=== PATIENT | female | born 1990 | race Two or more races ===

== ENCOUNTER 2021-04-28 01:29 | Outpatient (CLI) | payer OTHER ==
[2021-04-29] MEDS ORDERED: DUI500 PO (07:15)
== END 2021-04-29 10:02 | disposition home or self-care (01) ==
LOC: OBS/DEL 01:29
PROVIDERS: ATTEND Obstetrics & Gynecology
DX: O46.8X3 Other antepartum hemorrhage, third trimester (principal); Z3A.35 35 weeks gestation of pregnancy

== ENCOUNTER 2021-05-09 14:01 | Outpatient (CLI) | payer OTHER ==
[~2021-05-09 14:01] MED LIST: DUI500 PO
== END 2021-05-10 10:38 | disposition home or self-care (01) ==
LOC: OBS/DEL 14:01
PROVIDERS: ATTEND Obstetrics & Gynecology
DX: O26.843 Uterine size-date discrepancy, third trimester (principal); O36.8130 Decreased fetal movements, third trimester, not applicable or unspecified; O23.43 Unspecified infection of urinary tract in pregnancy, third trimester; O98.513 Other viral diseases complicating pregnancy, third trimester; U07.1 COVID-19; Z3A.37 37 weeks gestation of pregnancy

== ENCOUNTER 2021-05-17 07:01 | Outpatient (CLI) | payer OTHER ==
[2021-05-18] MEDS ORDERED: DUI500 PO (07:35)
[2021-05-18] MEDS ORDERED: PROBIOTIC1 EACH PO (07:35)
[2021-05-18] MEDS ORDERED: PRENATAL CAPLE1 EAC1 PO (07:35)
[2021-05-18] MEDS ORDERED: ORTHO DF 3,7751 EACH PO (07:35)
[2021-05-18] MEDS ORDERED: FOLIC ACID1 MG (08:03)
[2021-05-18] MEDS ORDERED: DOXYLAMINE-PYR1 EACH (08:03)
== END 2021-05-17 08:29 | disposition home or self-care (01) ==
LOC: NST 07:01
PROVIDERS: ATTEND Obstetrics & Gynecology
DX: Z34.03 Encounter for supervision of normal first pregnancy, third trimester (principal)

== ENCOUNTER 2021-05-18 07:11 | Inpatient (IN) | payer OTHER ==
[~2021-05-18] VITALS: Ht 165.1 cm; Wt 73.0 kg
[2021-05-18] MEDS ORDERED: ORTHO DF 3,7751 EACH PO (07:35)
[2021-05-18] MEDS ORDERED: PROBIOTIC1 EACH PO (07:35)
[2021-05-18] MEDS ORDERED: DUI500 PO (07:35)
[2021-05-18] MEDS ORDERED: PRENATAL CAPLE1 EAC1 PO (07:35)
[2021-05-18] MEDS ORDERED: DOXYLAMINE-PYR1 EACH (08:03)
[2021-05-18] MEDS ORDERED: FOLIC ACID1 MG (08:03)
[2021-05-21] MEDS ORDERED: PRENATE ADVANCE PO ×2 (13:02)
[2021-05-21] MEDS ORDERED: DOCUSATE SODIU100 MG PO ×2 (13:02)
[2021-05-21] MEDS ORDERED: IBUPROFEN800 MG PO ×2 (13:02)
[2021-05-21] MEDS ORDERED: SIMETHICONE125 M1 PO ×2 (13:02)
== END 2021-05-21 13:23 | disposition home or self-care (01) | DRG 786 ==
LOC: LDR 07:11 → OB/GYN 07:11
PROVIDERS: ADMIT Obstetrics & Gynecology; ATTEND Obstetrics & Gynecology
PROC: 3E0P7VZ Introduction of Hormone into Female Reproductive, Via Natural or Artificial Opening (ICD-10-PCS; 2021-05-18)
PROC: 4A1HXFZ Monitoring of Products of Conception, Cardiac Rhythm, External Approach (ICD-10-PCS; 2021-05-18)
PROC: 10D00Z1 Extraction of Products of Conception, Low, Open Approach (ICD-10-PCS; principal; 2021-05-18 15:00)
DX: O62.1 Secondary uterine inertia (principal); O98.52 Other viral diseases complicating childbirth; U07.1 COVID-19; Z53.29 Procedure and treatment not carried out because of patient's decision for other reasons; O42.02 Full-term premature rupture of membranes, onset of labor within 24 hours of rupture; Z3A.38 38 weeks gestation of pregnancy; Z37.0 Single live birth